=== PATIENT | male | born 1995 | race Two or more races ===

== ENCOUNTER 2020-05-13 12:10 | Emergency (ER) | payer SELFPAY ==
[2020-05-13] MEDS ORDERED: Ketorolac 30 MG/ML SDV IVPUSH ONE (12:24)
[2020-05-13] MEDS ORDERED: Sodium Chloride 0.9% 1,000 ML IV ONE (12:24)
--- NOTE | 2020-05-13 12:30 | EDM.PDOC ---
ED HPI GENERAL MEDICAL PROBLEM - General Chief Complaint: Abdominal Pain Stated Complaint: ABDOMINAL PAIN RT SIDE Time Seen by Provider: 05/13/20 12:20 Source of Information: Reports: Patient History Limitations: Reports: No Limitations - History of Present Illness INITIAL COMMENTS - FREE TEXT/NARRATIVE: HISTORY AND PHYSICAL: History of present illness: Patient is a 25-year-old male who presents to the emergency room with complaints of right lower quadrant abdominal pain x3 days. He states the pain started as a dull pain which is now progressively getting more intense and constant. He has been trying to use ibuprofen to alleviate his discomfort but has not helped. Patient denies any fever, chills, headache, change in vision, syncope or near syncope. Denies any chest pain, back pain, shortness of breath or cough. Denies any nausea, vomiting, diarrhea, constipation or dysuria. Denies any testicular pain, redness or swelling. Has not noted any blood in urine or stool. Patient has been eating and drinking appropriately. Review of systems: As per history of present illness and below otherwise all systems reviewed and negative. Past medical history: As per history of present illness and as reviewed below otherwise noncontributory. Surgical history: As per history of present illness and as reviewed below otherwise noncontributory. Social history: See social history for further information Family history: As per history of present illness and as reviewed below otherwise noncontributory. Physical exam: General: Well developed and well nourished. Alert and orientated x 3. Nontoxic in appearance and in no acute distress. Vital signs are stable and have been reviewed by me. Nursing notes were reviewed. HEENT: Atraumatic, normocephalic, pupils equal and reactive bilaterally, negative for conjunctival pallor or scleral icterus, mucous membranes moist, trachea midline. No drooling or trismus noted. No meningeal signs. No hot potato voice noted. Lungs: Clear to auscultation, breath sounds equal bilaterally, chest nontender. Normal work of breathing, no accessory muscles used. Heart: S1S2, regular rate and rhythm without overt murmur Abdomen: Soft, nondistended, right lower quadrant tenderness with rebound tenderness. Negative for masses or hepatosplenomegaly. Negative for costovertebral tenderness. Skin: Intact, warm, dry. No lesions or rashes noted. Hematologic: No petechiae or purpra. Mucosa appropriate color and normal nail bed color and refill. Extremities: Atraumatic, moves all extremities per self without difficulty or deficits, negative for cords or calf pain. Neurovascular unremarkable. Neuro: Awake, alert, oriented. Cranial nerves II through XII unremarkable. Cerebellum unremarkable. Motor and sensory unremarkable throughout. Exam nonfocal. Psychiatric: Mood and affect are appropriate. Normal thought process. Answering questions appropriately. Notes: Lab work is unremarkable. CT of the abdomen and pelvis shows moderate hepatomegaly and hepatic steatosis. Normal appearing appendix. No acute intra- abdominal abnormality or significant inflammatory changes are noted. States he does feel improved. I have spoken with the patient/caregiver and discussed today's findings, in addition to providing specific details for plan of care. Reassessment at the time of disposition demonstrates that the patient is in no acute distress. The patient has remained stable throughout the entire ED visit and is without objective evidence for acute process requiring urgent intervention or hospitalization. The patient is stable for discharge, counseling was provided and we discussed in great detail signs and symptoms that would prompt them to return to the Emergency Department. Medication, follow up and supportive care measures were reviewed and discussed. Voices understanding and is agreeable to plan of care. Denies any further questions or concerns at this time. Diagnostics: CBC, CMP, UA, CT abdomen and pelvis Therapeutics: IV fluids, Toradol Prescription: None Impression: Abdominal Pain Elevated transaminases Plan: 1. Today your liver enzymes slightly elevated, I would like you to have these rechecked in a few weeks. 2. Alternate Tylenol and ibuprofen as needed for pain management. 3. We encourage you to follow up with your primary care provider and/or recommended specialist in the next few days for re-evaluation and further care/management. If your symptoms should worsen, new symptoms develop or any of the signs and symptoms we discussed should arise please return to the emergency room or call 911 (if needed). Definitive disposition and diagnosis as appropriate pending reevaluation and review of above. right abdomen Pain Score (Numeric/FACES): 9 - Related Data Allergies Allergy/AdvReac Type Severity Reaction Status Date / Time No Known Allergies Allergy Verified 05/13/20 12:21 Home Meds: Home Meds . [No Known Home Meds] 05/13/20 [History] Past Medical History - Past Health History Medical/Surgical History: Denies Medical/Surgical History Social & Family History - Family History Family Medical History: Noncontributory - Tobacco Use Tobacco Use Status *Q: Never Tobacco User - Recreational Drug Use Recreational Drug Use: No ED ROS GENERAL - Review of Systems Review Of Systems: Comprehensive ROS is negative, except as noted in HPI. ED EXAM, GI/ABD - Physical Exam Exam: See Below (Dictation) Course - Vital Signs Last Recorded V/S: Last Vital Signs Temp 97.6 F 05/13/20 14:33 Pulse 90 05/13/20 14:33 Resp 18 05/13/20 14:33 BP 137/82 05/13/20 14:33 Pulse Ox 99 05/13/20 14:33 - Orders/Labs/Meds Orders: Active Orders 24 hr Category Date Time Status Abdomen Pelvis w Cont [CT] Stat Exams 05/13/20 13:35 Taken Labs: Laboratory Tests 05/13/20 05/13/20 05/13/20 Range/Units 12:28 12:28 12:28 WBC 9.47 (4.0-11.0) K/uL RBC 5.70 (4.50-5.90) M/uL Hgb 16.9 (13.0-17.0) g/dL Hct 49.0 (38.0-50.0) % MCV 86.0 (80.0-98.0) fL MCH 29.6 (27.0-32.0) pg MCHC 34.5 (31.0-37.0) g/dL RDW Std Deviation 39.2 (28.0-62.0) fl RDW Coeff of Augusto 12 (11.0-15.0) % Plt Count 190 (150-400) K/uL MPV 11.90 (7.40-12.00) fL Neut % (Auto) 57.2 (48.0-80.0) % Lymph % (Auto) 33.4 (16.0-40.0) % Gosper % (Auto) 7.5 (0.0-15.0) % Eos % (Auto) 1.8 (0.0-7.0) % Baso % (Auto) 0.1 (0.0-1.5) % Neut # (Auto) 5.4 (1.4-5.7) K/uL Lymph # (Auto) 3.2 H (0.6-2.4) K/uL Gosper # (Auto) 0.7 (0.0-0.8) K/uL Eos # (Auto) 0.2 (0.0-0.7) K/uL Baso # (Auto) 0.0 (0.0-0.1) K/uL Nucleated RBC % 0.0 /100WBC Nucleated RBCs # 0 K/uL Sodium 138 (136-148) mmol/L Potassium 3.5 (3.5-5.1) mmol/L Chloride 102 (98-107) mmol/L Carbon Dioxide 27.9 (21.0-32.0) mmol/L BUN 18 (7.0-18.0) mg/dL Creatinine 0.9 (0.8-1.3) mg/dL Est Cr Clr Drug Dosing 119.35 mL/min Estimated GFR (MDRD) > 60.0 ml/min Glucose 96 (74-106) mg/dL Calcium 9.9 (8.5-10.1) mg/dL Total Bilirubin 0.4 (0.2-1.0) mg/dL AST 47 H (15-37) IU/L ALT 127 H (14-63) IU/L Alkaline Phosphatase 109 (46-116) U/L Total Protein 8.2 (6.4-8.2) g/dL Albumin 4.9 (3.4-5.0) g/dL Globulin 3.3 (2.6-4.0) g/dL Albumin/Globulin Ratio 1.5 (0.9-1.6) Lipase 74 (73-393) U/L Urine Color Urine Appearance Urine pH (5.0-8.0) Ur Specific Acton (1.001-1.035) Urine Protein (NEGATIVE) mg/dL Urine Glucose (UA) (NEGATIVE) mg/dL Urine Ketones (NEGATIVE) mg/dL Urine Occult Blood (NEGATIVE) Urine Nitrite (NEGATIVE) Urine Bilirubin (NEGATIVE) Urine Urobilinogen (<2.0) EU/dL Ur Leukocyte Esterase (NEGATIVE) 05/13/20 Range/Units 12:57 WBC (4.0-11.0) K/uL RBC (4.50-5.90) M/uL Hgb (13.0-17.0) g/dL Hct (38.0-50.0) % MCV (80.0-98.0) fL MCH (27.0-32.0) pg MCHC (31.0-37.0) g/dL RDW Std Deviation (28.0-62.0) fl RDW Coeff of Augusto (11.0-15.0) % Plt Count (150-400) K/uL MPV (7.40-12.00) fL Neut % (Auto) (48.0-80.0) % Lymph % (Auto) (16.0-40.0) % Gosper % (Auto) (0.0-15.0) % Eos % (Auto) (0.0-7.0) % Baso % (Auto) (0.0-1.5) % Neut # (Auto) (1.4-5.7) K/uL Lymph # (Auto) (0.6-2.4) K/uL Gosper # (Auto) (0.0-0.8) K/uL Eos # (Auto) (0.0-0.7) K/uL Baso # (Auto) (0.0-0.1) K/uL Nucleated RBC % /100WBC Nucleated RBCs # K/uL Sodium (136-148) mmol/L Potassium (3.5-5.1) mmol/L Chloride (98-107) mmol/L Carbon Dioxide (21.0-32.0) mmol/L BUN (7.0-18.0) mg/dL Creatinine (0.8-1.3) mg/dL Est Cr Clr Drug Dosing mL/min Estimated GFR (MDRD) ml/min Glucose (74-106) mg/dL Calcium (8.5-10.1) mg/dL Total Bilirubin (0.2-1.0) mg/dL AST (15-37) IU/L ALT (14-63) IU/L Alkaline Phosphatase (46-116) U/L Total Protein (6.4-8.2) g/dL Albumin (3.4-5.0) g/dL Globulin (2.6-4.0) g/dL Albumin/Globulin Ratio (0.9-1.6) Lipase (73-393) U/L Urine Color YELLOW Urine Appearance CLEAR Urine pH 7.0 (5.0-8.0) Ur Specific Acton 1.025 (1.001-1.035) Urine Protein NEGATIVE (NEGATIVE) mg/dL Urine Glucose (UA) NEGATIVE (NEGATIVE) mg/dL Urine Ketones NEGATIVE (NEGATIVE) mg/dL Urine Occult Blood NEGATIVE (NEGATIVE) Urine Nitrite NEGATIVE (NEGATIVE) Urine Bilirubin NEGATIVE (NEGATIVE) Urine Urobilinogen 0.2 (<2.0) EU/dL Ur Leukocyte Esterase NEGATIVE (NEGATIVE) Meds: Medications Discontinued Medications Generic Name Dose Route Start Last Admin Trade Name Freq PRN Reason Stop Dose Admin Sodium Chloride 1,000 mls @ 999 mls/hr 05/13/20 12:24 05/13/20 12:32 Normal Saline IV 05/13/20 13:24 999 mls/hr STAT ONE Administration Iopamidol 100 ml 05/13/20 13:34 05/13/20 13:47 Isovue Multipack-370 (76%) IVPUSH 05/13/20 13:35 100 ml ONETIME STA Administration Ketorolac Tromethamine 30 mg 05/13/20 12:24 05/13/20 12:32 Toradol IVPUSH 05/13/20 12:25 30 mg ONETIME ONE Administration Departure - Departure Time of Disposition: 14:26 Disposition: Home, Self-Care 01 Clinical Impression: Elevated transaminase level Abdominal pain Qualifiers: Abdominal location: right lower quadrant Qualified Code(s): R10.31 - Right lower quadrant pain - Discharge Information Instructions: Abdominal Pain, Adult, [id number] Referrals: PCP,None [Primary Care Provider] - Forms: ED Department Discharge Additional Instructions: The following information is given to patients seen in the emergency department who are being discharged to home. This information is to outline your options for follow-up care. We provide all patients seen in our emergency department with a follow-up referral. The need for follow-up, as well as the timing and circumstances, are variable depending upon the specifics of your emergency department visit. If you don't have a primary care physician on staff, we will provide you with a referral. We always advise you to contact your personal physician following an emergency department visit to inform them of the circumstance of the visit and for follow-up with them and/or the need for any referrals to a consulting specialist. The emergency department will also refer you to a specialist when appropriate. This referral assures that you have the opportunity for follow-up care with a specialist. All of these measure are taken in an effort to provide you with optimal care, which includes your follow-up. Under all circumstances we always encourage you to contact your private physician who remains a resource for coordinating your care. When calling for follow-up care, please make the office aware that this follow-up is from your recent emergency room visit. If for any reason you are refused follow-up, please contact the [facility] Emergency Department at and asked to speak to the emergency department charge nurse. [facility] [address] [place] [id number] [id number] Thank you for choosing the [facility] emergency department in [place] for your medical needs today. It was a pleasure caring for you. Today you were seen in the emergency department for abdominal pain. 1. Today your liver enzymes slightly elevated, I would like you to have these rechecked in a few weeks. 2. Alternate Tylenol and ibuprofen as needed for pain management. 3. We encourage you to follow up with your primary care provider and/or recommended specialist in the next few days for re-evaluation and further care/management. If your symptoms should worsen, new symptoms develop or any of the signs and symptoms we discussed should arise please return to the emergency room or call 911 (if needed). Sepsis Event Note (ED) - Evaluation Sepsis Screening Result: No Definite Risk - Focused Exam Vital Signs: Vital Signs Temp Pulse Resp BP Pulse Ox 05/13/20 14:33 97.6 F 90 18 137/82 99 05/13/20 13:52 89 124/67 98 05/13/20 12:19 97.2 F 89 16 98 - My Orders Last 24 Hours: My Active Orders 05/13/20 13:35 Abdomen Pelvis w Cont [CT] Stat - Assessment/Plan Last 24 Hours: My Active Orders 05/13/20 13:35 Abdomen Pelvis w Cont [CT] Stat
[2020-05-13 13:09] LABS: BLOOD UREA NITROGEN,BUN 18 mg/dL (7.0-18.0); CARBON DIOXIDE,CO2 27.9 mmol/L (21.0-32.0); CHLORIDE,CL 102 mmol/L (98-107); GLUCOSE RANDOM 96 mg/dL (74-106); POTASSIUM,K 3.5 mmol/L (3.5-5.1); SODIUM,NA 138 mmol/L (136-148)
[2020-05-13] MEDS ORDERED: Iopamidol 755 MG/ML 500 ML Multipack Bottle IVPUSH STA (13:34)
--- NOTE | 2020-05-14 10:16 | CT ---
INDICATION: Right lower quadrant pain x3 days TECHNIQUE: Volumetric multi detector CT images of the abdomen and pelvis were obtained after administration of 100 cc Isovue 370 low is more intravenous contrast COMPARISON: None FINDINGS: Lung bases: There is minimal basilar atelectasis, otherwise the lung bases are clear. Liver: The liver is moderately enlarged with hepatic steatosis. There is demonstration of likely focal fatty sparing in the medial inferior left liver lobe. Gallbladder: Gallbladder is unremarkable without evidence of significant pericolic cystic inflammatory change. Adrenal glands: The adrenal glands are unremarkable. Spleen: The spleen is not enlarged and is normal in attenuation and enhancement. Stomach and proximal duodenum: The stomach and proximal duodenum are decompressed and unremarkable. Pancreas: The pancreas demonstrates normal enhancement without significant peripancreatic inflammatory changes. Incidental note is made of mild prominence of the pancreatic tail. Kidneys: The kidneys are normal in size and attenuation without evidence of radiopaque calculus. There is no significant perinephric inflammatory change. Colon and small bowel: Overall, the colon is decompressed with minimal stool. There is no significant pericolonic inflammatory change. The small bowel is nondistended. Appendix: The appendix is normal in caliber without evidence of periappendiceal inflammatory changes. Free air and free fluid: There is no intra-abdominal free air or free fluid. Lymph nodes: There is no epigastric, portacaval, retroperitoneal, mesenteric, or pelvic sidewall adenopathy. Osseous structures: The lumbar vertebral body heights are grossly maintained with mild positional straightening. There is no evidence of displaced fracture or dislocation. Minimal endplate Schmorl`s defects of the lower thoracic vertebral bodies are appreciated. IMPRESSION: Moderate hepatomegaly and hepatic steatosis. Normal appendix in the right lower quadrant. Otherwise, no evidence of acute intra-abdominal abnormality or significant inflammatory change. Please note that all CT scans at this facility use dose modulation, iterative reconstruction, and/or weight-based dosing when appropriate to reduce radiation dose to as low as reasonably achievable. Dictated by Timmy Gann MD @ May 13 2020 1:48PM Signed by Dr. Timmy Gann @ May 13 2020 2:02PM
== END 2020-05-13 14:41 | disposition home or self-care (01) ==
LOC: MW.ED 12:10
DX: R10.31 Right lower quadrant pain (principal); R74.01 Elevation of levels of liver transaminase levels
CPT/HCPCS: 36415; 74177; 80053; 81003; 83690; 85025; 96374; 99284; J1885; J7030; Q9967